=== PATIENT | female | born 1980 | race Caucasian/White ===

== ENCOUNTER 2023-07-05 20:28 | Emergency (ER) | payer BC, MEDICAID ==
[2023-07-05] MEDS ORDERED: Lidocaine 1% 5 ML VIAL INJECT ONE (21:08)
[2023-07-05 21:15] VITALS: BP 110/69; PULSE 56
[2023-07-05] MEDS ORDERED: Sulfamethoxazole/Trimethoprim 800-160 MG Tab PO ONE (21:49)
== END 2023-07-05 22:01 | disposition home or self-care (01) ==
LOC: DL.ED 20:28
DX: L02.01 Cutaneous abscess of face (principal); Z88.0 Allergy status to penicillin
CPT/HCPCS: 10060; 99283; A9270; J3490

== ENCOUNTER 2024-04-21 07:29 | Day surgery (SDC) | payer MEDICAID ==
[~2024-04-21 07:29] MED LIST: Midazolam 1 MG/ML 2 ML SDV ONE; fentaNYL 100 MCG/2 ML SDV ONE
[2024-04-21] MEDS: Dextrose 5%-0.45% NaCl 1,000 ML IV SCH (08:04)
[2024-04-21] MEDS: fentaNYL 100 MCG/2 ML SDV IV ONE ×2 (08:56→08:57)
[2024-04-21] MEDS: Midazolam 1 MG/ML 2 ML SDV IV ONE ×6 (08:57→09:04)
[2024-04-21 10:40] VITALS: BP 112/59; PULSE 67
== END 2024-04-21 10:35 | disposition home or self-care (01) ==
LOC: DL.ENDO 07:29
PROVIDERS: ATTEND Internal Medicine Gastroenterology
DX: Z12.11 Encounter for screening for malignant neoplasm of colon (principal); F41.9 Anxiety disorder, unspecified; F32.A Depression, unspecified; Z98.890 Other specified postprocedural states; Z80.0 Family history of malignant neoplasm of digestive organs; Z88.0 Allergy status to penicillin; Z79.899 Other long term (current) drug therapy
CPT/HCPCS: 45378; 81025; J2250; J3010; J7042